=== PATIENT | male | born 1970 | race Caucasian/White ===

== ENCOUNTER 2023-07-26 06:15 | Day surgery (SDC) | payer OTHER, SELFPAY ==
[2023-07-21 06:35] VITALS: BMI 41.3
[2023-07-26] VITALS (12 sets, daily range): BP systolic 83–147; BP diastolic 49–91; BMI 41.3
[2023-07-26] MEDS: NORMOSOL-R 1000 IV (07:55)
[2023-07-26] MEDS: TYLENOL 1000 MG PO (07:59)
== END 2023-07-26 11:54 | disposition home or self-care (01) ==
LOC: SDS 06:15
PROVIDERS: ATTENDING PHYSICIAN Surgery; OTHER PHYSICIAN Orthopaedic Surgery; OTHER PHYSICIAN Student in an Organized Health Care Education/Training Program
DX: K51.90 Ulcerative colitis, unspecified, without complications (principal); K62.82 Dysplasia of anus; K64.4 Residual hemorrhoidal skin tags; K62.9 Disease of anus and rectum, unspecified
CPT/HCPCS: 45171; 45330; 88305; 88341; 88342; 93005

== ENCOUNTER 2024-04-22 06:26 | Day surgery (SDC) | payer OTHER, SELFPAY | END 2024-04-22 11:15 | disposition home or self-care (01) | LOC: GI 06:26 | PROVIDERS: ATTENDING PHYSICIAN Internal Medicine Gastroenterology | DX: Z12.11 Encounter for screening for malignant neoplasm of colon (principal); K51.00 Ulcerative (chronic) pancolitis without complications; K51.40 Inflammatory polyps of colon without complications | CPT/HCPCS: 45380; 88305 ==